=== PATIENT | male | born 2000 | race Caucasian/White ===

== ENCOUNTER 2019-04-20 10:50 | Inpatient (IN) ==
[2019-04-20] MEDS ORDERED: 0.9 % Sodium Chloride 1,000 ML IVC ONE (11:18)
[2019-04-20] MEDS ORDERED: *HR* FentaNYL (PF) 100 MCG/2 ML VIAL IVP ONE (11:18)
[2019-04-20] MEDS ORDERED: Ondansetron 4 MG/2 ML VIAL IVP ONE (11:18)
[2019-04-20 11:31] LABS: Basophils # 0.1 K/mcL (0.0-0.2); Basophils % 0.3 %; Eosinophils # 0.2 K/mcL (0.0-0.6); Eosinophils % 1.2 %; Hematocrit 43.6 % (37.5-50.1); Hemoglobin 15.4 g/dL (12.9-16.9); Immature Granulocytes % 0.7 % (0-4); Lymphocytes # 3.4 K/mcL (0.6-4.6); Lymphocytes % 18.7 %; Mean Corpuscular HGB Conc 35.3 g/dL (31.6-35.5); Mean Corpuscular Hemoglobin 31.9 pg (28.0-33.3); Mean Corpuscular Volume 90.3 fL (83.0-100.0); Mean Platelet Volume 9.2 fL (9.4-12.4); Monocytes % 5.2 %; Neutrophils # 13.5 K/mcL (1.6-8.9); Platelet Count 244 K/mcL (140-400); Red Blood Count 4.83 M/mcL (4.19-5.50); Red Cell Distribution Width 12.3 % (11.5-14.5); Segmented Neutrophils % 73.9 %; White Blood Count 18.2 K/mcL (4.3-11.1)
[2019-04-20 11:55] LABS: Alanine Aminotransferase 17 Units/L (7-52); Albumin 3.9 g/dL (3.5-5.7); Albumin/Globulin Ratio 1.4 (1.1-2.2); Alkaline Phosphatase 67 Units/L (34-104); Aspartate Amino Transferase 19 Units/L (13-39); BUN/Creatinine Ratio 21 (6-26); Bilirubin,Total 0.7 mg/dL (0.3-1.0); Blood Urea Nitrogen 15 mg/dL (6-20); Calcium 8.5 mg/dL (8.6-10.3); Carbon Dioxide 24 mEq/L (23-29); Chloride 104 mEq/L (98-107); Globulin 2.7 g/dL (2.4-3.5); Glucose 165 mg/dL (70-105); Lipase > 1800 Units/L (11-82); Osmolality,Calculated 293 (280-300); Potassium 3.3 mEq/L (3.5-5.1); Sodium 139 mEq/L (136-145); Total Protein 6.6 g/dL (6.4-8.9); eGFR For African Americans > 60 (> 60); eGFR For Non-African Americans > 60 (> 60)
[2019-04-20] MEDS ORDERED: *HR* Promethazine 25 MG/ML VIAL IVP ONE (12:06)
[2019-04-20 12:07] LABS: Bilirubin,Urine Negative (Negative); Blood,Urine Negative (Negative); Clarity,Urine Clear (Clear); Color,Urine Yellow (Yellow); Glucose,Urine (UA) Normal (Normal); Ketones,Urine Negative (Negative); Leukocyte Esterase,Urine Negative (Negative); Nitrite,Urine Negative (Negative); PH,Urine 7.5 pH Units (5.0-8.0); Protein,Urine Negative (Neg-Trace); Urobilinogen,Urine Normal (Normal)
[2019-04-20] MEDS ORDERED: *HR* HYDROmorphone (PF) 1 MG/ML SYRINGE IVP ONE (12:46)
[2019-04-20] MEDS ORDERED: Isovue-370 500 ML BOTTLE IVP ONE (12:56)
[2019-04-20] MEDS ORDERED: Naloxone 0.4 MG/ML INJ IVP PRN (13:35)
[2019-04-20 13:59] LABS: VBG HCO3 27 mEq/L (21-27); VBG PCO2 55 mmHg (41-51); VBG PO2 57 mmHg (25-50)
[2019-04-20] MEDS ORDERED: lamoTRIgine 100 MG TABLET PO SCH (15:00)
[2019-04-20] MEDS ORDERED: *HR* HYDROmorphone (PF) 1 MG/ML SYRINGE IVP SCH (16:00)
[2019-04-20] MEDS: 0.9 % Sodium Chloride 1,000 ML IVC SCH ×2 (16:06→22:52)
[2019-04-20] MEDS: *HR* HYDROmorphone (PF) 1 MG/ML SYRINGE IVP PRN ×2 (16:55→21:57)
[2019-04-20] MEDS: lamoTRIgine 100 MG TABLET PO SCH (20:37)
[2019-04-21] MEDS: Melatonin 3 MG TABLET PO PRN ×2 (01:39→20:53)
[2019-04-21] MEDS: 0.9 % Sodium Chloride 1,000 ML IVC SCH ×3 (05:36→18:59)
[2019-04-21] MEDS: *HR* Enoxaparin 40 MG/0.4 ML SYRINGE SQ SCH (05:56)
[2019-04-21 06:00] LABS: Basophils % 0.2 %; Hematocrit 45.6 % (37.5-50.1); Hemoglobin 15.5 g/dL (12.9-16.9); Immature Granulocytes % 0.6 % (0-4); Lymphocytes # 0.8 K/mcL (0.6-4.6); Lymphocytes % 3.6 %; Mean Corpuscular Hemoglobin 31.6 pg (28.0-33.3); Mean Corpuscular Volume 92.9 fL (83.0-100.0); Mean Platelet Volume 10.1 fL (9.4-12.4); Monocytes # 1.6 K/mcL (0.0-1.3); Neutrophils # 20.3 K/mcL (1.6-8.9); Platelet Count 223 K/mcL (140-400); Red Blood Count 4.91 M/mcL (4.19-5.50); Red Cell Distribution Width 12.7 % (11.5-14.5); Segmented Neutrophils % 88.6 %; White Blood Count 22.9 K/mcL (4.3-11.1)
[2019-04-21 06:08] LABS: Basophils # 0.1 K/mcL (0.0-0.2)
[2019-04-21 06:26] LABS: Alanine Aminotransferase 19 Units/L (7-52); Albumin 3.9 g/dL (3.5-5.7); Albumin/Globulin Ratio 1.5 (1.1-2.2); Alkaline Phosphatase 59 Units/L (34-104); Amylase 393 Units/L (29-103); Aspartate Amino Transferase 40 Units/L (13-39); BUN/Creatinine Ratio 17 (6-26); Bilirubin,Direct 0.5 mg/dL (0.0-0.2); Bilirubin,Indirect 1.2 mg/dL (0.0-1.0); Bilirubin,Total 1.7 mg/dL (0.3-1.0); Blood Urea Nitrogen 12 mg/dL (6-20); Carbon Dioxide 28 mEq/L (23-29); Chloride 99 mEq/L (98-107); Globulin 2.6 g/dL (2.4-3.5); Glucose 124 mg/dL (70-105); Lipase > 1800 Units/L (11-82); Osmolality,Calculated 283 (280-300); Potassium 4.1 mEq/L (3.5-5.1); Sodium 136 mEq/L (136-145); Total Protein 6.5 g/dL (6.4-8.9); eGFR For African Americans > 60 (> 60); eGFR For Non-African Americans > 60 (> 60)
[2019-04-21] MEDS: lamoTRIgine 100 MG TABLET PO SCH ×2 (07:54→20:55)
[2019-04-21] MEDS: *HR* HYDROmorphone (PF) 1 MG/ML SYRINGE IVP PRN ×4 (07:55→20:55)
[2019-04-21] MEDS: *HR* Promethazine 25 MG/ML VIAL IVP PRN ×2 (15:09→20:01)
[2019-04-21] MEDS: Sucralfate 1 GM TABLET PO SCH ×2 (15:09→20:54)
[2019-04-22] MEDS: *HR* Promethazine 25 MG/ML VIAL IVP PRN ×2 (01:21→19:04)
[2019-04-22] MEDS: 0.9 % Sodium Chloride 1,000 ML IVC SCH ×3 (01:32→15:01)
[2019-04-22] MEDS: *HR* HYDROmorphone (PF) 1 MG/ML SYRINGE IVP PRN ×4 (01:32→15:52)
[2019-04-22 05:43] LABS: Hemoglobin 14.3 g/dL (12.9-16.9); Mean Corpuscular Hemoglobin 31.5 pg (28.0-33.3); Mean Corpuscular Volume 92.5 fL (83.0-100.0); Mean Platelet Volume 10.7 fL (9.4-12.4); Platelet Count 168 K/mcL (140-400); Red Blood Count 4.54 M/mcL (4.19-5.50); Red Cell Distribution Width 12.8 % (11.5-14.5); White Blood Count 24.4 K/mcL (4.3-11.1)
[2019-04-22] MEDS: *HR* Enoxaparin 40 MG/0.4 ML SYRINGE SQ SCH (05:52)
[2019-04-22] MEDS ORDERED: 0.9 % Sodium Chloride 1,000 ML IVC ONE (05:55)
[2019-04-22 05:57] LABS: Albumin 3.3 g/dL (3.5-5.7); Albumin/Globulin Ratio 1.5 (1.1-2.2); Bilirubin,Indirect 2.2 mg/dL (0.0-1.0); Bilirubin,Total 4.2 mg/dL (0.3-1.0); Globulin 2.2 g/dL (2.4-3.5); Total Protein 5.5 g/dL (6.4-8.9)
[2019-04-22 05:58] LABS: BUN/Creatinine Ratio 22 (6-26); Blood Urea Nitrogen 15 mg/dL (6-20); Calcium 7.3 mg/dL (8.6-10.3); Carbon Dioxide 26 mEq/L (23-29); Chloride 98 mEq/L (98-107); Glucose 150 mg/dL (70-105); Lipase 561 Units/L (11-82); Osmolality,Calculated 282 (280-300); Potassium 3.7 mEq/L (3.5-5.1); Sodium 134 mEq/L (136-145); eGFR For African Americans > 60 (> 60); eGFR For Non-African Americans > 60 (> 60)
[2019-04-22] MEDS: Piperacillin/Tazobactam 3.375 GM in 0.9 % Sodium Chloride Mini Bag 100 ML IVPB SCH ×2 (08:06→14:43)
[2019-04-22] MEDS: lamoTRIgine 100 MG TABLET PO SCH (08:08)
[2019-04-22] MEDS: Sucralfate 1 GM TABLET PO SCH ×3 (08:10→14:44)
[2019-04-22] MEDS ORDERED: 0.9 % Sodium Chloride 1,000 ML IV ONE (09:38)
[2019-04-22] MEDS ORDERED: *HR* Metoprolol 5 MG/5 ML VIAL IVP ONE (09:59)
[2019-04-22 14:42] LABS: Hepatitis B Surface Antigen Nonreactive (Nonreactive)
[2019-04-22] MEDS ORDERED: 0.9 % Sodium Chloride 1,000 ML IV SCH ×2 (14:45→17:00)
[2019-04-22 15:11] LABS: Hepatitis C Virus Antibody Nonreactive (Nonreactive)
[2019-04-22 15:12] LABS: Hepatitis B Core IgM Nonreactive (Nonreactive)
[2019-04-22 15:14] LABS: Hepatitis A Antibody IgM Nonreactive (Nonreactive)
[2019-04-22] MEDS ORDERED: 0.9 % Sodium Chloride 500 ML IV ONE (17:34)
[2019-04-22 17:38] VITALS: BP 94/56
== END 2019-04-22 19:30 | disposition critical access hospital (66) | DRG 282 ==
LOC: INPGRE 10:50 → EMEROOGRE 10:50 → SUATTDRO 13:49 → INPGRE 14:18
PROVIDERS: ADMIT Internal Medicine; ATTEND Family Medicine